=== PATIENT | male | born 1930 | race Two or more races ===

== ENCOUNTER 2018-03-16 11:26 | Inpatient (IN) | payer MEDICARE, OTHER ==
[~2018-03-16] VITALS: Ht 172.7 cm; Wt 78.7 kg
[~2018-03-16 11:26] MED LIST: EPZICOM1 TAB; FLO4 PO; LIPI20 PO
[2018-03-16 12:24] LABS: BASOPHIL % 0.2 % (0-2); PLATELET COUNT 237 x10^3mcL (130-400)
[2018-03-16 12:32] LABS: CALCIUM 8.8 mg/dL (8.5-10.1); CARBON DIOXIDE 29.9 mmol/L (21-32); CHLORIDE SERUM 103 mmol/L (98-107); CREATININE SERUM 1.2 mg/dL (0.7-1.3); GLUCOSE SERUM 110 mg/dL (74-106); POTASSIUM SERUM 4.2 mmol/L (3.5-5.1); SODIUM SERUM 139 mmol/L (136-145)
[2018-03-16 12:33] LABS: microscopic required? NO
[2018-03-16 12:37] LABS: ALKALINE PHOSPHATASE 113 U/L (46-116); ALT/SGPT 26 U/L (16-63); AST/SGOT 20 U/L (15-37); BILIRUBIN TOTAL 0.4 mg/dL (0.20-1.00); TOTAL PROTEIN, SERUM 7.1 g/dL (6.4-8.2)
[2018-03-16 12:47] LABS: UA SPECIFIC GRAVITY 1.025 (1.005-1.035); urine erythrocyte NEGATIVE (NEGATIVE)
[2018-03-16 12:59] LABS: ALBUMIN 2.9 g/dL (3.4-5.0)
[2018-03-16] MEDS ORDERED: TAMSULOSIN HYD0.4 M1 PO (13:39)
[2018-03-16] MEDS ORDERED: AUGMENTIN 875-1 EACH PO (13:40)
[2018-03-16] MEDS ORDERED: LIPI20 GT (13:40)
[2018-03-16] MEDS ORDERED: CLARITHROMYCIN500 M1 PO (13:40)
[2018-03-16] MEDS ORDERED: GOOD SENSE ASPI81 M3 PO (13:41)
[2018-03-16 16:05] LABS: AMPHETAMINE QUAL UR NONE DETECTED (See below)
[2018-03-16 16:05] LABS: MAGNESIUM 2.2 mg/dL (1.8-2.4); PHOSPHOROUS 2.9 mg/dL (2.5-4.9)
[2018-03-16 16:22] VITALS: BP 150/90
[2018-03-16 16:25] VITALS: Ht 172.7 cm; Wt 78.7 kg
[2018-03-16 17:03] VITALS: BP 150/90
[2018-03-16 20:36] VITALS: BP 120/76
[2018-03-17 05:32] VITALS: BP 107/73
[2018-03-17 06:50] LABS: BASOPHIL % 0.4 % (0-2); PLATELET COUNT 215 x10^3mcL (130-400)
[2018-03-17 06:57] LABS: CALCIUM 8.5 mg/dL (8.5-10.1); CARBON DIOXIDE 30.3 mmol/L (21-32); CHLORIDE SERUM 102 mmol/L (98-107); CREATININE SERUM 1.3 mg/dL (0.7-1.3); GLUCOSE SERUM 107 mg/dL (74-106); LACTIC DEHYDROGENASE (LDH) 130 U/L (100-190); MAGNESIUM 2.2 mg/dL (1.8-2.4); PHOSPHOROUS 3.4 mg/dL (2.5-4.9); POTASSIUM SERUM 4.1 mmol/L (3.5-5.1); SODIUM SERUM 138 mmol/L (136-145)
[2018-03-17 07:02] LABS: RED CELL DISTRIBUTION WIDTH 15.9 % (11.5-14.5)
[2018-03-17 09:09] VITALS: BP 100/65
[2018-03-17 12:44] VITALS: BP 105/74
[2018-03-17 17:37] VITALS: BP 111/63
[2018-03-17 20:37] VITALS: BP 119/64
[2018-03-18 05:40] VITALS: BP 98/61
[2018-03-18 06:37] LABS: BASOPHIL % 0.3 % (0-2); PLATELET COUNT 227 x10^3mcL (130-400)
[2018-03-18 06:38] LABS: RED CELL DISTRIBUTION WIDTH 16.3 % (11.5-14.5)
[2018-03-18 06:58] LABS: CALCIUM 8.8 mg/dL (8.5-10.1); CARBON DIOXIDE 29.7 mmol/L (21-32); CHLORIDE SERUM 102 mmol/L (98-107); CREATININE SERUM 1.6 mg/dL (0.7-1.3); GLUCOSE SERUM 106 mg/dL (74-106); MAGNESIUM 2.1 mg/dL (1.8-2.4); PHOSPHOROUS 3.7 mg/dL (2.5-4.9); POTASSIUM SERUM 3.8 mmol/L (3.5-5.1); SODIUM SERUM 139 mmol/L (136-145)
[2018-03-18 08:20] VITALS: BP 95/60
[2018-03-18 13:20] VITALS: BP 101/73
[2018-03-18 18:30] VITALS: BP 91/59
[2018-03-18 20:55] VITALS: BP 104/62
[2018-03-19 05:59] VITALS: BP 104/78
[2018-03-19 09:00] VITALS: BP 103/60
[2018-03-19 11:15] LABS: BASOPHIL % 0.3 % (0-2); PLATELET COUNT 216 x10^3mcL (130-400); RED CELL DISTRIBUTION WIDTH 16.7 % (11.5-14.5)
[2018-03-19 11:25] LABS: CALCIUM 8.6 mg/dL (8.5-10.1); CARBON DIOXIDE 28.9 mmol/L (21-32); CHLORIDE SERUM 103 mmol/L (98-107); CREATININE SERUM 1.5 mg/dL (0.7-1.3); GLUCOSE SERUM 152 mg/dL (74-106); POTASSIUM SERUM 3.7 mmol/L (3.5-5.1); SODIUM SERUM 140 mmol/L (136-145)
[2018-03-19 12:00] VITALS: BP 116/73
[2018-03-19 17:20] VITALS: BP 111/72
[2018-03-19 20:48] VITALS: BP 113/72
[2018-03-20 05:07] VITALS: BP 126/84
[2018-03-20 06:28] LABS: BASOPHIL % 0.5 % (0-2); PLATELET COUNT 218 x10^3mcL (130-400)
[2018-03-20 06:33] LABS: RED CELL DISTRIBUTION WIDTH 16.8 % (11.5-14.5)
[2018-03-20 06:51] LABS: CALCIUM 8.5 mg/dL (8.5-10.1); CARBON DIOXIDE 27.3 mmol/L (21-32); CHLORIDE SERUM 105 mmol/L (98-107); CREATININE SERUM 1.3 mg/dL (0.7-1.3); GLUCOSE SERUM 89 mg/dL (74-106); POTASSIUM SERUM 4.1 mmol/L (3.5-5.1); SODIUM SERUM 140 mmol/L (136-145)
[2018-03-20 08:35] VITALS: BP 101/65
[2018-03-20 12:49] VITALS: BP 145/72
[2018-03-20 16:51] VITALS: BP 124/82
[2018-03-20 18:19] VITALS: BP 145/72
[2018-03-20 20:05] VITALS: BP 112/79
[2018-03-21] VITALS (10 sets, daily range): BP systolic 107–141; BP diastolic 67–96
[2018-03-21 07:13] LABS: CARBON DIOXIDE 28.3 mmol/L (21-32); CHLORIDE SERUM 104 mmol/L (98-107); CREATININE SERUM 1.4 mg/dL (0.7-1.3); GLUCOSE SERUM 93 mg/dL (74-106); SODIUM SERUM 138 mmol/L (136-145)
[2018-03-21 07:24] LABS: BASOPHIL % 0.7 % (0-2); PLATELET COUNT 236 x10^3mcL (130-400); RED CELL DISTRIBUTION WIDTH 16.4 % (11.5-14.5)
[2018-03-21 14:26] LABS: APPEARANCE FLUID CLEAR; SOURCE FLUID PLEURAL FLUID
[2018-03-21 14:27] LABS: COLOR FLUID LIGHT YELLOW
[2018-03-21 14:28] LABS: WBC FLUID 590 /cumm
[2018-03-21 14:29] LABS: LYMPHOCYTE FLUID 94 %; MONOCYTE FLUID 6 %; RBC FLUID > 5000 /cumm
[2018-03-22 06:05] VITALS: BP 113/72
[2018-03-22 06:14] LABS: BASOPHIL % 0.1 % (0-2); PLATELET COUNT 246 x10^3mcL (130-400)
[2018-03-22 06:30] LABS: RED CELL DISTRIBUTION WIDTH 16.2 % (11.5-14.5)
[2018-03-22 06:36] LABS: CALCIUM 8.6 mg/dL (8.5-10.1); CHLORIDE SERUM 104 mmol/L (98-107); CREATININE SERUM 1.4 mg/dL (0.7-1.3); GLUCOSE SERUM 94 mg/dL (74-106); SODIUM SERUM 139 mmol/L (136-145)
[2018-03-22 09:00] VITALS: BP 134/83
[2018-03-22] MEDS ORDERED: ELIQUIS5 MG PO (09:35)
[2018-03-22 10:47] VITALS: BP 134/83
[2018-03-22 12:00] VITALS: BP 126/79
== END 2018-03-22 13:56 | disposition home health service (06) | DRG 177 ==
LOC: ED 11:26 → EDBD 11:26 → DU 15:22
PROVIDERS: Emergency Medicine; Internal Medicine; ADMIT Family Medicine
DX: J69.0 Pneumonitis due to inhalation of food and vomit (principal); I26.99 Other pulmonary embolism without acute cor pulmonale; I50.43 Acute on chronic combined systolic (congestive) and diastolic (congestive) heart failure; J96.01 Acute respiratory failure with hypoxia; N17.0 Acute kidney failure with tubular necrosis; D68.69 Other thrombophilia; I11.0 Hypertensive heart disease with heart failure; I48.91 Unspecified atrial fibrillation; N40.0 Benign prostatic hyperplasia without lower urinary tract symptoms; F03.90 Unspecified dementia, unspecified severity, without behavioral disturbance, psychotic disturbance, mood disturbance, and anxiety; J44.9 Chronic obstructive pulmonary disease, unspecified; I73.9 Peripheral vascular disease, unspecified; Z68.26 Body mass index [BMI] 26.0-26.9, adult
CPT/HCPCS: 32555; 36600; 83880; 87804; 88344; 94150; 97110-GP; 97116-GP; 97530-GP; C1729; G0378; J1644; J1940; J2543; J7030; J7040; J7050; J7620; Q0092; Q9967

== ENCOUNTER 2019-09-25 13:15 | Emergency (ER) | payer MEDICARE, OTHER ==
[~2019-09-25] VITALS: Ht 177.8 cm; Wt 90.7 kg
[~2019-09-25 13:15] MED LIST changes: +AUGMENTIN 875-1 EACH PO; +CLARITHROMYCIN500 M1 PO; +ELIQUIS5 MG PO; +GOOD SENSE ASPI81 M3 PO; +LIPI20 GT; +TAMSULOSIN HYD0.4 M1 PO
[2019-09-25 13:24] VITALS: Ht 177.8 cm; Wt 90.7 kg
[2019-09-25 15:11] LABS: BASOPHIL % 0.7 % (0-2); PLATELET COUNT 195 x10^3mcL (130-400); RED CELL DISTRIBUTION WIDTH 14.5 % (11.5-14.5)
[2019-09-25 15:34] LABS: CARBON DIOXIDE 35.3 mmol/L (21-32); CHLORIDE SERUM 103 mmol/L (98-107); CREATININE SERUM 1.3 mg/dL (0.7-1.3); GLUCOSE SERUM 101 mg/dL (74-106); POTASSIUM SERUM 3.4 mmol/L (3.5-5.1); SODIUM SERUM 143 mmol/L (136-145)
[2019-09-25 15:38] LABS: ALBUMIN 3.1 g/dL (3.4-5.0); ALKALINE PHOSPHATASE 84 U/L (46-116); ALT/SGPT 25 U/L (16-63); AST/SGOT 22 U/L (15-37); BILIRUBIN TOTAL 0.6 mg/dL (0.20-1.00); CHOLESTEROL 191 mg/dL (<200); HDL CHOLESTEROL 43 mg/dL (40-60); MAGNESIUM 2.1 mg/dL (1.8-2.4); TOTAL PROTEIN, SERUM 6.5 g/dL (6.4-8.2)
[2019-09-25 18:45] VITALS: BP 137/95
== END 2019-09-25 18:45 | disposition home or self-care (01) ==
LOC: ED 13:15
PROVIDERS: Emergency Medicine
DX: F03.90 Unspecified dementia, unspecified severity, without behavioral disturbance, psychotic disturbance, mood disturbance, and anxiety (principal); E86.0 Dehydration; I48.20 Chronic atrial fibrillation, unspecified
CPT/HCPCS: 82962